=== PATIENT | female | born 1935 | race Caucasian/White ===

== ENCOUNTER → 2017-09-29 | Outpatient (CLI) | payer MEDICARE | END | disposition home or self-care (01) | LOC: RAH 11:09 | PROVIDERS: ATTEND Internal Medicine | DX: Z12.31 Encounter for screening mammogram for malignant neoplasm of breast (principal) | CPT/HCPCS: 77067 ==

== ENCOUNTER → 2019-03-10 | Outpatient (CLI) | payer MEDICARE | END | disposition home or self-care (01) | LOC: RAH 11:11 | PROVIDERS: ATTEND Internal Medicine | DX: Z12.31 Encounter for screening mammogram for malignant neoplasm of breast (principal) | CPT/HCPCS: 77067 ==

== ENCOUNTER → 2019-03-16 | Outpatient (CLI) | payer MEDICARE | END | disposition home or self-care (01) | LOC: RAH 12:21 | PROVIDERS: ATTEND Internal Medicine | DX: R92.1 Mammographic calcification found on diagnostic imaging of breast (principal) | CPT/HCPCS: 77065 ==

== ENCOUNTER 2020-01-28 15:10 | Inpatient (IN) | payer MEDICARE ==
[~2020-01-28] VITALS: Ht 180.3 cm; Wt 63.5 kg
[2020-01-28] MEDS ORDERED: DEXTROSE 50%-WATER 50 ML DISP.SYRIN IV ONE ×2 (15:18→15:56)
[2020-01-28 15:42] LABS: BASOPHILS % (AUTO) 0.5 % (0.0-5.0); EOSINOPHILS % (AUTO) 2.4 % (0.0-8.0); HEMATOCRIT 35.2 % (36-48); LYMPHOCYTES % (AUTO) 5.3 % (21.0-51.0); MEAN CORPUSCULAR HEMOGLOBIN 32.4 pg (27.0-33.0); MEAN CORPUSCULAR HGB CONC 34.9 g/dL (32.0-36.0); MEAN CORPUSCULAR VOLUME 92.6 fL (79-99); NEUTROPHILS % (AUTO) 85.1 % (40.0-77.0); PLATELET COUNT (AUTO) 262 K/uL (130-400); RED CELL DISTRIBUTION WIDTH 15.1 % (11.0-15.5); WHITE BLOOD COUNT (AUTO) 12.7 K/uL (4.8-10.8)
[2020-01-28 15:57] LABS: APPEARANCE,URINE Clear (CLEAR); BILIRUBIN,URINE Large (NEGATIVE); COLOR,URINE Dark Yellow (YELLOW); GLUCOSE, URINE (UA) Negative (NEGATIVE); KETONES,URINE Trace mg/dL (NEGATIVE); LEUKOCYTE ESTERASE ,URINE Trace (NEGATIVE); NITRATE,URINE Negative (NEGATIVE); OCCULT BLOOD,URINE Negative (NEGATIVE); PROTEIN,URINE POS 1+ mg/dL (NEGATIVE)
[2020-01-28 16:03] LABS: BACTERIA,URINE Rare /HPF (None Seen); RBC,URINE 0-1 /HPF (0-1); SQUAMOUS EPITHELIAL CELL,UR Rare /HPF (0-2); WBC,URINE 0-1 /HPF (0-1)
[2020-01-28 16:04] LABS: MUCUS,URINE Rare LPF (None Seen)
[2020-01-28 16:34] LABS: CREATININE 2.7 mg/dL (0.5-1.5); POTASSIUM 4.3 mmol/L (3.5-5.1)
[2020-01-28 16:56] LABS: ALBUMIN 2.4 g/dL (3.5-5.0); BILIRUBIN,TOTAL 1.5 mg/dL (0.2-1.0); TOTAL PROTEIN, SERUM 4.9 g/dL (6.0-8.3)
[2020-01-28 18:41] LABS: INR 1.42 (0.85-1.15); PARTIAL THROMBOPLASTIN TIME 32.7 SEC (26.3-35.5); PROTHROMBIN TIME 15.1 SEC (9.6-11.6)
[2020-01-28] MEDS ORDERED: DEXTROSE 50%-WATER 50 ML DISP.SYRIN IV PRN ×2 (19:00→19:15)
[2020-01-28] MEDS ORDERED: GLUCAGON 1MG KIT 1 MG ML IM PRN ×2 (19:00→19:15)
[2020-01-28] MEDS ORDERED: SODIUM CHLORIDE 0.9% 1000ML 1,000 ML IV SCH (19:01)
[2020-01-28] MEDS ORDERED: SODIUM CHLORIDE 0.9% 1000ML 1,000 ML, SODIUM CHLORIDE 0.9% 1000ML 1,000 ML IV SCH (19:01)
[2020-01-28] MEDS ORDERED: ACETAMINOPHEN 325 MG TAB PO PRN ×2 (19:15)
[2020-01-28] MEDS ORDERED: ZOLPIDEM TARTRATE 5 MG TAB PO PRN (19:15)
[2020-01-28] MEDS ORDERED: NITROGLYCERIN 0.4 MG SL TAB SL PRN (19:15)
[2020-01-28] MEDS ORDERED: DIPHENHYDRAMINE HCL 25 MG CAPSULE PO PRN (19:15)
[2020-01-28] MEDS ORDERED: GUAIFENESIN-DM 200/20 MG 10 ML PO PRN (19:15)
[2020-01-28] MEDS ORDERED: CEFTRIAXONE SODIUM 1 GM IV SCH (19:15)
[2020-01-28] MEDS ORDERED: MAG HYDROX/AL HYDROX/SIMETH 60 ML, LIDOCAINE HCL 2% VISCOUS 60 ML, DIPHENHYDRAMINE HCL ... PO PRN ×3 (19:15)
[2020-01-28] MEDS ORDERED: MAG HYDROX/AL HYDROX/SIMETH ES 30 ML SUSP UDCUP PO PRN (19:15)
[2020-01-28] MEDS ORDERED: DiphenhydrAMINE HCL 50 MG/ML VIAL IV PRN (19:15)
[2020-01-28] MEDS ORDERED: LACTULOSE 20 GM/30 ML UDCUP PO PRN (19:15)
[2020-01-28] MEDS ORDERED: ONDANSETRON HCL 4 MG/2 ML VIAL IV PRN (19:15)
[2020-01-28 19:25] LABS: AMPHET/METH SCREEN,URINE NEGATIVE (NEGATIVE); BARBITURATE SCREEN, URINE NEGATIVE (NEGATIVE); BENZODIAZEPINES SCREEN,URINE NEGATIVE (NEGATIVE); CANNABINOID SCREEN,URINE NEGATIVE (NEGATIVE); COCAINE SCREEN,URINE NEGATIVE (NEGATIVE); OPIATE SCREEN,URINE NEGATIVE (NEGATIVE); PHENCYCLIDINE SCREEN,URINE NEGATIVE (NEGATIVE)
[2020-01-28 19:26] LABS: MAGNESIUM 1.6 mg/dL (1.80-2.40)
[2020-01-28] MEDS ORDERED: CEFTRIAXONE SODIUM 1 GM ONE (19:30)
[2020-01-28] MEDS ORDERED: CALCIUM CHLORIDE 100 MG/ML 10 ML SYG IVP SCH (19:45)
[2020-01-28] MEDS ORDERED: MAGNESIUM 2GM PREMIX 50ML 50 ML IV ONE (19:49)
[2020-01-28 20:25] LABS: HEMOGLOBIN A1C 4.9 % (4.0-6.0)
[2020-01-28 20:59] LABS: MYOGLOBIN 2205 ng/mL (10-92); TROPONIN I < 0.04 ng/mL (0.00-0.06)
[2020-01-28] MEDS: HEPARIN SODIUM 5000UNIT/ML 1ML VIAL SQ SCH (21:00)
[2020-01-28] MEDS: INSULIN LISPRO 100 UNIT/ML 3ML SQ SCH (21:00)
[2020-01-28 21:07] LABS: CREATINE KINASE, TOTAL 909 U/L (21-232)
[2020-01-28 21:16] LABS: MYOGLOBIN 1942 ng/mL (10-92); TROPONIN I < 0.04 ng/mL (0.00-0.06)
[2020-01-28 21:22] LABS: CREATINE KINASE, TOTAL 813 U/L (21-232)
--- NOTE | 2020-01-29 00:45 | NUR ---
ER REPORT FROM SEBASTIÁN RN. PT WAS FOUND AT HOME UNRESPONSIVE ON HER PORCH. WELLNESS CALL WAS MADE BY NEIGHBOR. ON ADMISSIONS BS LEVEL OF 10. PT IS SLIGHTLY CONFUSED.
[2020-01-29 00:50] VITALS: BP 117/59
--- NOTE | 2020-01-29 01:00 | NUR ---
PT ARRIVED TO FLOOR. AAO2. MINIMAL CONFUSION NOTED WHEN ASKING ABOUT EMERGENCY CONTACT. ABLE TO RESPOND TO MOST QUESTIONS. GBW. BLOOD SUGAR 67. GIVEN OJ. PT STATES SHE HAS NO MEDICAL HISTORY. SHE HAS HAD RIGHT FOOT TENDON REPAIR. LIVES AT [facility] IN [place]. SHE HAS A PCP THERE. STATES THERE HAVE BEEN ISSUES WITH HER APPOINTMENTS DUE TO COVID. PT HAS NO FAMILY HERE. HAS NEIGHBOR EMERGENCY CONTACT. ABRASIONS NOTED TO UPPER AND LOWER EXTREMITIES.
[2020-01-29 03:47] VITALS: BP 110/61
[2020-01-29] MEDS: INSULIN LISPRO 100 UNIT/ML 3ML SQ SCH ×4 (05:35→20:41)
[2020-01-29 06:48] LABS: BASOPHILS % (AUTO) 0.2 % (0.0-5.0); EOSINOPHILS % (AUTO) 3.9 % (0.0-8.0); LYMPHOCYTES % (AUTO) 5.6 % (21.0-51.0); MEAN CORPUSCULAR HGB CONC 36.5 g/dL (32.0-36.0); MEAN CORPUSCULAR VOLUME 90.6 fL (79-99); MONOCYTES % (AUTO) 5.8 % (3.0-13.0); NEUTROPHILS % (AUTO) 83.9 % (40.0-77.0); PLATELET COUNT (AUTO) 238 K/uL (130-400); RED BLOOD CELL COUNT(AUTO) 3.42 MIL/uL (4.00-5.50); WHITE BLOOD COUNT (AUTO) 12.3 K/uL (4.8-10.8)
[2020-01-29] MEDS: DEXTROSE 5 % AND 0.9 % NACL 1,000 ML IV SCH (07:57)
[2020-01-29 08:25] LABS: ALANINE AMINOTRANSFERASE 116 U/L (12-78); ALBUMIN 2.4 g/dL (3.5-5.0); ASPARTATE AMINOTRANSFERASE 122 U/L (10-37); BILIRUBIN,TOTAL 1.1 mg/dL (0.2-1.0); CARBON DIOXIDE 27 mmol/L (21-32); CHLORIDE 100 mmol/L (101-111); CREATINE KINASE, TOTAL 388 U/L (21-232); CREATININE 2.7 mg/dL (0.5-1.5); GLOMERULAR FILTR. RATE CALC 18 mL/min (>60); GLUCOSE,RANDOM 150 mg/dL (70-105); PHOSPHORUS 3.7 mg/dL (2.5-4.9); POTASSIUM 4.7 mmol/L (3.5-5.1); SODIUM SERUM 133 mmol/L (136-145); TOTAL PROTEIN, SERUM 4.8 g/dL (6.0-8.3); TROPONIN I < 0.04 ng/mL (0.00-0.06); UREA NITROGEN, BLOOD 56 mg/dL (7-18)
[2020-01-29] MEDS: FAMOTIDINE/PF 20 MG/2 ML VIAL IV SCH (08:52)
[2020-01-29] MEDS: HEPARIN SODIUM 5000UNIT/ML 1ML VIAL SQ SCH ×3 (08:53→20:40)
[2020-01-29 09:09] VITALS: BP 113/54
[2020-01-29 09:38] LABS: MYOGLOBIN 876 ng/mL (10-92)
--- NOTE | 2020-01-29 12:15 | NUR ---
RD NOTIFICATION Pt admitted with metabolic encephalopathy. Pt with Regular diet order in place. Pt tolerating meals as per RN, ate breakfast 75-100%. Pt with FTT, mild to moderate signs muscle/fat loss. BMI low for age. Recommend Ensure TID with meals RD to continue to monitor. Please notify as additional nutrition concerns arise. Thank you.
[2020-01-29 12:16] VITALS: BP 110/59
--- NOTE | 2020-01-29 13:28 | NUR ---
[facility] CM unable to meet w/pt, called friend on facesheet, left message on [employer] for Jaimee Cuevas , pending friend to call back. Obtained info from previous med records. Pt was independent at home, no dme known. Called Dr Bond's office to see if there is any family member contact available, as per nurse none at this time, only contact they have is patient's number. CM will reassess once pt more coherent and able to answer questions. DC plan for home home w/HH vs SNF. CM to cont to follow up. Addendum: 01/29/20 at 1331 by BLOSSOM MARQUEZ LVN CM Amended: Links added.
[2020-01-29 15:39] LABS: APPEARANCE,URINE Clear (CLEAR); BILIRUBIN,URINE Moderate (NEGATIVE); COLOR,URINE Dark Yellow (YELLOW); GLUCOSE, URINE (UA) Negative (NEGATIVE); KETONES,URINE Trace mg/dL (NEGATIVE); LEUKOCYTE ESTERASE ,URINE Small (NEGATIVE); NITRATE,URINE Negative (NEGATIVE); OCCULT BLOOD,URINE Negative (NEGATIVE); PROTEIN,URINE Trace mg/dL (NEGATIVE)
[2020-01-29 15:50] LABS: BACTERIA,URINE Few /HPF (None Seen); RBC,URINE 0-1 /HPF (0-1); SQUAMOUS EPITHELIAL CELL,UR Few /HPF (0-2); TRANSITIONAL EPI CELLS,URINE Few /HPF (None Seen)
[2020-01-29 17:05] VITALS: BP 120/65
[2020-01-29 20:00] VITALS: BP 105/57
[2020-01-30] VITALS: BP 120/68
[2020-01-30 04:00] VITALS: BP 119/69
[2020-01-30 04:03] LABS: BASOPHILS % (AUTO) 0.2 % (0.0-5.0); EOSINOPHILS % (AUTO) 4.2 % (0.0-8.0); HEMATOCRIT 31.2 % (36-48); LYMPHOCYTES % (AUTO) 4.4 % (21.0-51.0); MEAN CORPUSCULAR HEMOGLOBIN 32.8 pg (27.0-33.0); MEAN CORPUSCULAR HGB CONC 35.9 g/dL (32.0-36.0); MEAN CORPUSCULAR VOLUME 91.5 fL (79-99); MONOCYTES % (AUTO) 7.3 % (3.0-13.0); NEUTROPHILS % (AUTO) 82.9 % (40.0-77.0); PLATELET COUNT (AUTO) 228 K/uL (130-400); RED BLOOD CELL COUNT(AUTO) 3.41 MIL/uL (4.00-5.50); RED CELL DISTRIBUTION WIDTH 15.8 % (11.0-15.5); WHITE BLOOD COUNT (AUTO) 12.2 K/uL (4.8-10.8)
[2020-01-30 04:26] LABS: ALBUMIN 2.1 g/dL (3.5-5.0); BILIRUBIN,TOTAL 0.8 mg/dL (0.2-1.0); CREATININE 2.3 mg/dL (0.5-1.5); MAGNESIUM 1.8 mg/dL (1.80-2.40); PHOSPHORUS 2.5 mg/dL (2.5-4.9); POTASSIUM 3.7 mmol/L (3.5-5.1); THYROID STIMULATING HORMONE 2.75 uIU/mL (0.36-3.74); TOTAL PROTEIN, SERUM 4.7 g/dL (6.0-8.3); URIC ACID 12.8 mg/dL (2.6-7.2)
[2020-01-30] MEDS: DEXTROSE 5 % AND 0.9 % NACL 1,000 ML IV SCH ×3 (05:01→21:23)
[2020-01-30] MEDS: INSULIN LISPRO 100 UNIT/ML 3ML SQ SCH ×4 (06:15→21:00)
[2020-01-30 08:00] VITALS: BP 120/66
[2020-01-30] MEDS: FOLIC ACID/VITAMIN B COMP W-C 1 CAP TAB PO SCH (09:34)
[2020-01-30] MEDS: THIAMINE HCL 100 MG/ML 2ML VIAL IVP SCH (09:35)
[2020-01-30] MEDS: FAMOTIDINE/PF 20 MG/2 ML VIAL IV SCH (09:35)
[2020-01-30] MEDS: HEPARIN SODIUM 5000UNIT/ML 1ML VIAL SQ SCH ×3 (09:35→20:54)
[2020-01-30 12:00] VITALS: BP 106/54
--- NOTE | 2020-01-30 15:18 | NUR ---
DCP: cont CM met w/pt, unable to answer questions appropriately still, called friend on facesheet. Spoke to Jaimee Cuevas . As per friend she assists w/pt's needs, but currently in [place]. Pt lives alone, she lives close by. Pt uses cane at home for ambulation as needed. Denies any other equipments/services. Uses [facility] for meds. CM to cont to follow up w/pt once more stable.
[2020-01-30 16:30] VITALS: BP 127/51
[2020-01-30 21:50] VITALS: BP 112/64
--- NOTE | 2020-01-30 22:07 | NUR ---
TRANSFER Received from 4th floor accompanied per Em [place].Pt aao x 2,she had pulled out her iv.Iv restarted to left upper arm x 1 attempt,successful.Iv wrapped with Kerlix.Pt came in with multiple abrasions and skin tears to both arms.has a deept tissue injury to her left hip.St 2 breakdown to her left buttocks.Pictures taken per Em [place].Pt wearing diaper.Reoriented to time and place.Fall risks precautions initiated.
--- NOTE | 2020-01-30 22:30 | NUR ---
wound pictures taken, printed and placed in paper chart.
[2020-01-31] VITALS (7 sets, daily range): BP systolic 114–162; BP diastolic 59–75
[2020-01-31 04:40] LABS: BASOPHILS % (AUTO) 0.3 % (0.0-5.0); EOSINOPHILS % (AUTO) 4.2 % (0.0-8.0); HEMATOCRIT 32.2 % (36-48); LYMPHOCYTES % (AUTO) 4.5 % (21.0-51.0); MEAN CORPUSCULAR HEMOGLOBIN 32.8 pg (27.0-33.0); MEAN CORPUSCULAR HGB CONC 35.7 g/dL (32.0-36.0); MEAN CORPUSCULAR VOLUME 91.7 fL (79-99); MONOCYTES % (AUTO) 8.5 % (3.0-13.0); NEUTROPHILS % (AUTO) 81.4 % (40.0-77.0); PLATELET COUNT (AUTO) 189 K/uL (130-400); RED BLOOD CELL COUNT(AUTO) 3.51 MIL/uL (4.00-5.50); WHITE BLOOD COUNT (AUTO) 11.6 K/uL (4.8-10.8)
[2020-01-31 05:04] LABS: BILIRUBIN,TOTAL 0.7 mg/dL (0.2-1.0); CREATININE 1.8 mg/dL (0.5-1.5); MAGNESIUM 1.6 mg/dL (1.80-2.40); POTASSIUM 3.6 mmol/L (3.5-5.1); TOTAL PROTEIN, SERUM 4.7 g/dL (6.0-8.3)
--- NOTE | 2020-01-31 05:05 | NUR ---
CALM Pt rested and slept thru the night.Calm and cooperative.
[2020-01-31] MEDS: DEXTROSE 5 % AND 0.9 % NACL 1,000 ML IV SCH ×2 (05:34→22:07)
[2020-01-31] MEDS: MAGNESIUM 2GM PREMIX 50ML 50 ML IV SCH (05:41)
[2020-01-31] MEDS: INSULIN LISPRO 100 UNIT/ML 3ML SQ SCH ×4 (05:52→20:42)
[2020-01-31] MEDS: FAMOTIDINE/PF 20 MG/2 ML VIAL IV SCH (09:13)
[2020-01-31] MEDS: FOLIC ACID/VITAMIN B COMP W-C 1 CAP TAB PO SCH (09:14)
[2020-01-31] MEDS: THIAMINE HCL 100 MG/ML 2ML VIAL IVP SCH (09:14)
[2020-01-31] MEDS: HEPARIN SODIUM 5000UNIT/ML 1ML VIAL SQ SCH ×3 (09:20→22:03)
[2020-01-31 10:14] LABS: HEPATITIS A ANTIBODY IGM Negative (Negative); HEPATITIS B CORE IGM Negative (Negative); HEPATITIS Bs ANTIGEN SCREEN P Negative (Negative)
[2020-01-31] MEDS ORDERED: HONEY 1 APPL/ML TUBE TP SCH (21:00)
[2020-02-01 03:27] VITALS: BP 137/80
[2020-02-01 04:50] LABS: HEMATOCRIT 32.8 % (36-48); MEAN CORPUSCULAR HEMOGLOBIN 32.6 pg (27.0-33.0); MEAN CORPUSCULAR HGB CONC 35.4 g/dL (32.0-36.0); MEAN CORPUSCULAR VOLUME 92.1 fL (79-99); PLATELET COUNT (AUTO) 185 K/uL (130-400); RED BLOOD CELL COUNT(AUTO) 3.56 MIL/uL (4.00-5.50); RED CELL DISTRIBUTION WIDTH 16.3 % (11.0-15.5)
[2020-02-01 04:57] LABS: CREATININE 1.6 mg/dL (0.5-1.5); POTASSIUM 3.9 mmol/L (3.5-5.1)
[2020-02-01] MEDS: INSULIN LISPRO 100 UNIT/ML 3ML SQ SCH ×4 (05:31→21:00)
[2020-02-01 05:45] LABS: BAND NEUTROPHILS % (MANUAL) 12 % (0-2); BASOPHILS % (MANUAL) 1 % (0-2); EOSINOPHILS % (MANUAL) 2 % (1-6); LYMPHOCYTES % (MANUAL) 8 % (22-44); MONOCYTES % (MANUAL) 9 % (2-9); SEGMENTED NEUTROPHILS % 68 % (40-70)
[2020-02-01 05:46] LABS: MAN.DIFF COMMENT-IMPRESSION MANUAL DIFFERENTIAL; PLATELET MORPHOLOGY COMMENT ADEQUATE
[2020-02-01 08:00] VITALS: BP 143/63
[2020-02-01] MEDS ORDERED: HONEY 1 APPL/ML TUBE TP SCH (09:00)
[2020-02-01] MEDS: FAMOTIDINE/PF 20 MG/2 ML VIAL IV SCH (09:05)
[2020-02-01] MEDS: THIAMINE HCL 100 MG/ML 2ML VIAL IVP SCH (09:08)
[2020-02-01] MEDS: HEPARIN SODIUM 5000UNIT/ML 1ML VIAL SQ SCH ×3 (09:13→21:25)
[2020-02-01] MEDS: FOLIC ACID/VITAMIN B COMP W-C 1 CAP TAB PO SCH (09:15)
--- NOTE | 2020-02-01 11:52 | NUR ---
EMILIA NIETO SPOKE TO PT AT BEDSIDE, REGARDING ONCOLOGY CONSULT PT REFUSE CONSULT.
[2020-02-01 11:54] VITALS: BP 140/79
--- NOTE | 2020-02-01 13:39 | NUR ---
CM Note: declined placement CM met with pt discussed MD recommendations for short term rehab, pt declined at this time. Pt verbalized her friend Jaimee goes to her house daily to check on her and assist her w/transportation and needs. Informed pt will have JOSE ANTONIO Gonzalez visit patient at home to see if maybe she can assist w/possible provider at home, pt agreed. Dr Montez made aware. DC plan to home once stable. Primary nurse Tana BOLANOS aware. CM to cont to follow up.
--- NOTE | 2020-02-01 13:44 | NUR ---
CM Note: spoke to Lisa w/DAD CM informed Lisa w/DAD regarding possible assistance for pt at home, pt lives alone. Per Lisa will call pt and friend. CM to cont to follow up.
[2020-02-01] MEDS: DEXTROSE 5 % AND 0.9 % NACL 1,000 ML IV SCH (14:58)
[2020-02-01 16:00] VITALS: BP 133/61
[2020-02-01 20:00] VITALS: BP 117/55
[2020-02-02] VITALS: BP 144/98
[2020-02-02 03:41] VITALS: BP 148/81
[2020-02-02 05:04] LABS: BASOPHILS % (AUTO) 0.3 % (0.0-5.0); EOSINOPHILS % (AUTO) 3.3 % (0.0-8.0); HEMATOCRIT 33.9 % (36-48); LYMPHOCYTES % (AUTO) 3.9 % (21.0-51.0); MEAN CORPUSCULAR HEMOGLOBIN 32.1 pg (27.0-33.0); MEAN CORPUSCULAR HGB CONC 34.5 g/dL (32.0-36.0); MEAN CORPUSCULAR VOLUME 93.1 fL (79-99); NEUTROPHILS % (AUTO) 77.8 % (40.0-77.0); PLATELET COUNT (AUTO) 177 K/uL (130-400); RED BLOOD CELL COUNT(AUTO) 3.64 MIL/uL (4.00-5.50); RED CELL DISTRIBUTION WIDTH 16.8 % (11.0-15.5)
[2020-02-02 05:34] LABS: ALBUMIN 2.1 g/dL (3.5-5.0); BILIRUBIN,TOTAL 0.8 mg/dL (0.2-1.0); CREATININE 1.3 mg/dL (0.5-1.5); POTASSIUM 4.2 mmol/L (3.5-5.1); TOTAL PROTEIN, SERUM 4.8 g/dL (6.0-8.3)
[2020-02-02] MEDS: INSULIN LISPRO 100 UNIT/ML 3ML SQ SCH ×4 (05:44→21:00)
[2020-02-02 08:15] VITALS: BP 130/70
[2020-02-02] MEDS: FAMOTIDINE/PF 20 MG/2 ML VIAL IV SCH (10:09)
[2020-02-02] MEDS: FOLIC ACID/VITAMIN B COMP W-C 1 CAP TAB PO SCH (10:10)
[2020-02-02] MEDS: HEPARIN SODIUM 5000UNIT/ML 1ML VIAL SQ SCH ×3 (10:10→21:56)
[2020-02-02] MEDS: THIAMINE HCL 100 MG/ML 2ML VIAL IVP SCH (10:10)
[2020-02-02 11:33] VITALS: BP 109/62
--- NOTE | 2020-02-02 13:33 | NUR ---
CM note: [facility] pending approval CM met with pt, as per MD now agreeable for SNF, discussed MD recommendations. Pt now agreeable for short term rehab, JOHN signed for [facility]. Pt request for friend Jaimee to be updated. CM spoke to Jaimee , given POC, friend agreeable, telephone consent obtained JOHN for GP, witnessed by Raiza ROJAS. Faxed order, clinicals, PT, [facility], Covid transfer form to [facility], confirmation received. Spoke to Zulema barry dcp once approved, made aware pending covid rapid test ordered today, will send result once available. Pt pending approval. EMS filled out, pending to be faxed w/current date, primary nurse to call [facility] once pt ready to DC. Primary nurse aware. CM to cont to follow up.
[2020-02-02 16:14] VITALS: BP 129/78
[2020-02-02 20:00] VITALS: BP 141/64
[2020-02-03] VITALS: BP 145/75
[2020-02-03 04:00] VITALS: BP 133/80
[2020-02-03 05:05] LABS: HEMATOCRIT 34.8 % (36-48); MEAN CORPUSCULAR HEMOGLOBIN 32.3 pg (27.0-33.0); MEAN CORPUSCULAR HGB CONC 34.2 g/dL (32.0-36.0); MEAN CORPUSCULAR VOLUME 94.6 fL (79-99); PLATELET COUNT (AUTO) 196 K/uL (130-400); RED BLOOD CELL COUNT(AUTO) 3.68 MIL/uL (4.00-5.50); RED CELL DISTRIBUTION WIDTH 17.2 % (11.0-15.5); WHITE BLOOD COUNT (AUTO) 13.5 K/uL (4.8-10.8)
[2020-02-03 05:16] LABS: CREATININE 1.4 mg/dL (0.5-1.5); POTASSIUM 4.5 mmol/L (3.5-5.1)
[2020-02-03 05:53] LABS: BAND NEUTROPHILS % (MANUAL) 11 % (0-2); BASOPHILS % (MANUAL) 1 % (0-2); EOSINOPHILS % (MANUAL) 1 % (1-6); LYMPHOCYTES % (MANUAL) 3 % (22-44); MAN.DIFF COMMENT-IMPRESSION MANUAL DIFFERENTIAL; MONOCYTES % (MANUAL) 9 % (2-9); SEGMENTED NEUTROPHILS % 75 % (40-70)
[2020-02-03 05:54] LABS: PLATELET MORPHOLOGY COMMENT ADEQUATE
[2020-02-03] MEDS: INSULIN LISPRO 100 UNIT/ML 3ML SQ SCH ×4 (06:31→20:56)
[2020-02-03 08:00] VITALS: BP 139/81
[2020-02-03] MEDS: FAMOTIDINE/PF 20 MG/2 ML VIAL IV SCH (10:26)
[2020-02-03] MEDS: THIAMINE HCL 100 MG/ML 2ML VIAL IVP SCH (10:26)
[2020-02-03] MEDS: FOLIC ACID/VITAMIN B COMP W-C 1 CAP TAB PO SCH (10:26)
[2020-02-03] MEDS: HEPARIN SODIUM 5000UNIT/ML 1ML VIAL SQ SCH ×3 (10:28→20:56)
[2020-02-03 12:00] VITALS: BP 92/50
[2020-02-03 16:00] VITALS: BP 130/73
--- NOTE | 2020-02-03 18:10 | NUR ---
DRESSING'S CHANGED TO BILATERIAL ARMS WHERE PT HAS SKIN TEARS FROM FALL THAT SHE HAD AT HOME PRIOR TO ADMISSION; PT IS ALSO NOTED TO HAVE HEALING SCABS TO BOTH KNEES AND LOWER LEGS; I CLEANSED ARMS WITH BETADINE THEN APPLIED MEDIHONEY WITH VASELINE GAUZE COVERING AND KERLIX WRAP HOLDING DRESSINGS IN PLACE; BRUISED SKIN IN NOTED AROUND THE TEARS, AND PINK TISSUE WITHIN THE TEARS, NO DRAINAGE; PT IS ALSO NOTED TO HAVE A LARGE SCAB TO HER RIGHT ELBOW; PT YOU. DRESSING CHANGES WELL WITH NO C/O PAIN.
[2020-02-03 20:00] VITALS: BP 131/69
[2020-02-04] VITALS (8 sets, daily range): BP systolic 88–141; BP diastolic 52–76
[2020-02-04] MEDS: INSULIN LISPRO 100 UNIT/ML 3ML SQ SCH ×4 (05:35→21:00)
[2020-02-04 05:39] LABS: BASOPHILS % (AUTO) 0.4 % (0.0-5.0); EOSINOPHILS % (AUTO) 2.5 % (0.0-8.0); HEMATOCRIT 33.9 % (36-48); LYMPHOCYTES % (AUTO) 3.5 % (21.0-51.0); MEAN CORPUSCULAR HEMOGLOBIN 32.5 pg (27.0-33.0); MEAN CORPUSCULAR HGB CONC 34.8 g/dL (32.0-36.0); MEAN CORPUSCULAR VOLUME 93.4 fL (79-99); MONOCYTES % (AUTO) 9.9 % (3.0-13.0); NEUTROPHILS % (AUTO) 82.3 % (40.0-77.0); PLATELET COUNT (AUTO) 210 K/uL (130-400); RED BLOOD CELL COUNT(AUTO) 3.63 MIL/uL (4.00-5.50); RED CELL DISTRIBUTION WIDTH 17.2 % (11.0-15.5); WHITE BLOOD COUNT (AUTO) 15.6 K/uL (4.8-10.8)
[2020-02-04 06:04] LABS: CREATININE 1.4 mg/dL (0.5-1.5); POTASSIUM 4.7 mmol/L (3.5-5.1)
[2020-02-04] MEDS: FAMOTIDINE/PF 20 MG/2 ML VIAL IV SCH (09:28)
[2020-02-04] MEDS: THIAMINE HCL 100 MG/ML 2ML VIAL IVP SCH (09:29)
[2020-02-04] MEDS: FOLIC ACID/VITAMIN B COMP W-C 1 CAP TAB PO SCH (09:29)
[2020-02-04] MEDS: HEPARIN SODIUM 5000UNIT/ML 1ML VIAL SQ SCH ×3 (09:36→20:56)
--- NOTE | 2020-02-04 12:00 | NUR ---
[facility]: Spoke w [facility]. She mentions that pt has been accepted for admission to their facility. COVID form and rapid test results faxed.. Room 1107B assigned. Primary nurse Ford informed.
--- NOTE | 2020-02-04 13:20 | NUR ---
Notified Dr. Montez that pt has been accepted to [facility]. He stated no discharge orders because pt bp has been borderline low today. Last BP was 88/52, but pt asymptomatic, resting in bed after having completed physical therapy session. Notified ERIC Arambula, who stated that negative COVID swab will be valid until tomorrow.
[2020-02-04] MEDS: SODIUM CHLORIDE 0.9% 1000ML 1,000 ML IV SCH (15:22)
[2020-02-05 04:00] VITALS: BP 140/73
[2020-02-05] MEDS: INSULIN LISPRO 100 UNIT/ML 3ML SQ SCH ×4 (05:59→20:19)
[2020-02-05 07:05] LABS: CREATININE 1.3 mg/dL (0.5-1.5); MAGNESIUM 1.5 mg/dL (1.80-2.40); POTASSIUM 4.8 mmol/L (3.5-5.1)
[2020-02-05 07:29] VITALS: BP 139/91
[2020-02-05] MEDS ORDERED: MAGNESIUM 2GM PREMIX 50ML 50 ML IV SCH (08:30)
[2020-02-05] MEDS: FOLIC ACID/VITAMIN B COMP W-C 1 CAP TAB PO SCH (10:22)
[2020-02-05] MEDS: THIAMINE HCL 100 MG/ML 2ML VIAL IVP SCH (10:22)
[2020-02-05] MEDS: FAMOTIDINE/PF 20 MG/2 ML VIAL IV SCH (10:22)
[2020-02-05] MEDS: SODIUM CHLORIDE 0.9% 1000ML 1,000 ML IV SCH (10:30)
[2020-02-05] MEDS: HEPARIN SODIUM 5000UNIT/ML 1ML VIAL SQ SCH ×3 (10:31→20:28)
[2020-02-05 10:59] VITALS: BP 85/53
[2020-02-05] MEDS: MAGNESIUM 2GM PREMIX 50ML 50 ML IV SCH (11:49)
[2020-02-05 16:08] VITALS: BP 127/74
--- NOTE | 2020-02-05 17:13 | NUR ---
DISPOSITION WILL BE TO SNF- WHEN COVID IS AVAILALBE Addendum: 02/05/20 at 1718 by DENISSE SAINZ RN CM Amended: Links added.
[2020-02-05 20:00] VITALS: BP 124/79
[2020-02-05 23:39] VITALS: BP 146/76
[2020-02-06 03:52] VITALS: BP 141/80
[2020-02-06 04:58] LABS: BASOPHILS % (AUTO) 0.4 % (0.0-5.0); EOSINOPHILS % (AUTO) 1.6 % (0.0-8.0); HEMATOCRIT 36.2 % (36-48); LYMPHOCYTES % (AUTO) 2.8 % (21.0-51.0); MEAN CORPUSCULAR HEMOGLOBIN 32.5 pg (27.0-33.0); MEAN CORPUSCULAR HGB CONC 34.3 g/dL (32.0-36.0); MEAN CORPUSCULAR VOLUME 94.8 fL (79-99); MONOCYTES % (AUTO) 6.1 % (3.0-13.0); NEUTROPHILS % (AUTO) 88.1 % (40.0-77.0); PLATELET COUNT (AUTO) 249 K/uL (130-400); RED BLOOD CELL COUNT(AUTO) 3.82 MIL/uL (4.00-5.50); RED CELL DISTRIBUTION WIDTH 17.7 % (11.0-15.5)
[2020-02-06 05:20] LABS: CREATININE 1.5 mg/dL (0.5-1.5); POTASSIUM 5.3 mmol/L (3.5-5.1)
[2020-02-06] MEDS: INSULIN LISPRO 100 UNIT/ML 3ML SQ SCH ×4 (06:38→21:00)
[2020-02-06 08:00] VITALS: BP 142/76
[2020-02-06] MEDS: FOLIC ACID/VITAMIN B COMP W-C 1 CAP TAB PO SCH (08:40)
[2020-02-06] MEDS: FAMOTIDINE/PF 20 MG/2 ML VIAL IV SCH (08:40)
[2020-02-06] MEDS: THIAMINE HCL 100 MG/ML 2ML VIAL IVP SCH (08:40)
[2020-02-06] MEDS: HEPARIN SODIUM 5000UNIT/ML 1ML VIAL SQ SCH ×3 (08:57→21:28)
[2020-02-06 11:05] LABS: ALBUMIN 2.1 g/dL (3.5-5.0); BILIRUBIN,TOTAL 0.9 mg/dL (0.2-1.0)
[2020-02-06 12:00] VITALS: BP 119/52
--- NOTE | 2020-02-06 15:59 | NUR ---
RD FOLLOW UP Pt with [facility], Low potassium diet order in place. No report of GI distress. Fair to poor Po intake. Noted Coccyx ulcer, multiple skin tears/abrasions with medihoney in place. Nephrovite and MVI in place. Significant weight loss x 1 week. Recommend 60mL ProMod BID Recommend Nepro QD RD to continue to monitor. Please notify RD as additional nutrition concerns arise. Thank you. Addendum: 02/06/20 at [address] RD Amended: Links added.
[2020-02-06 16:00] VITALS: BP 114/73
[2020-02-06 17:51] LABS: INR 1.12 (0.85-1.15); PARTIAL THROMBOPLASTIN TIME 32.1 SEC (26.3-35.5)
[2020-02-06 20:31] VITALS: BP 140/70
[2020-02-06 23:51] VITALS: BP 138/77
[2020-02-07 03:54] VITALS: BP 144/82
[2020-02-07 04:23] LABS: BASOPHILS % (AUTO) 0.2 % (0.0-5.0); EOSINOPHILS % (AUTO) 1.6 % (0.0-8.0); HEMATOCRIT 33.6 % (36-48); MEAN CORPUSCULAR HGB CONC 35.1 g/dL (32.0-36.0); MEAN CORPUSCULAR VOLUME 93.9 fL (79-99); MONOCYTES % (AUTO) 5.7 % (3.0-13.0); NEUTROPHILS % (AUTO) 89.8 % (40.0-77.0); PLATELET COUNT (AUTO) 254 K/uL (130-400); RED BLOOD CELL COUNT(AUTO) 3.58 MIL/uL (4.00-5.50); RED CELL DISTRIBUTION WIDTH 17.2 % (11.0-15.5)
[2020-02-07 04:56] LABS: CREATININE 1.4 mg/dL (0.5-1.5); POTASSIUM 4.9 mmol/L (3.5-5.1)
--- NOTE | 2020-02-07 06:30 | NUR ---
Wound care done to left arm and right arm due to multiple superficial skin tear. Wound looks like resolving as compared to previous days. Some of the wound are dry and has been resolved. Photo of the wound taken and attached to chart. No unusualities seen.
[2020-02-07] MEDS: INSULIN LISPRO 100 UNIT/ML 3ML SQ SCH ×2 (06:40→11:30)
[2020-02-07 07:30] VITALS: BP 136/69
--- NOTE | 2020-02-07 08:00 | NUR ---
AM SHIFT ASSESSMENT. AWAKE, DRESSINGS TO ARMS WELL SECURED, CLEAN AND DRY. CAN TELL ME HER NAME AND DATE OF BUT DOES NOT KNOW WHERE SHE IS OR DATE.
[2020-02-07] MEDS: THIAMINE HCL 100 MG/ML 2ML VIAL IVP SCH (08:49)
[2020-02-07] MEDS: FAMOTIDINE/PF 20 MG/2 ML VIAL IV SCH (08:49)
[2020-02-07] MEDS: FOLIC ACID/VITAMIN B COMP W-C 1 CAP TAB PO SCH (08:50)
[2020-02-07] MEDS: HEPARIN SODIUM 5000UNIT/ML 1ML VIAL SQ SCH ×2 (08:52→14:21)
[2020-02-07 11:00] VITALS: BP 128/69
[2020-02-07 11:22] LABS: ALBUMIN 1.9 g/dL (3.5-5.0); BILIRUBIN,TOTAL 0.9 mg/dL (0.2-1.0); CREATININE 1.6 mg/dL (0.5-1.5); POTASSIUM 5.2 mmol/L (3.5-5.1); TOTAL PROTEIN, SERUM 4.8 g/dL (6.0-8.3)
[2020-02-07 16:00] VITALS: BP 137/77
--- NOTE | 2020-02-07 16:45 | NUR ---
Notified pt's contact Jaimee Cuevas of impending discharge to [facility] this afternoon.
--- NOTE | 2020-02-07 20:06 | NUR ---
REPORT CALLED, GIVEN TO NURSE WILSON. EMS NOTIFIED OF TRANSFER
--- NOTE | 2020-02-07 22:06 | NUR ---
[facility] here to transport pt to [facility],pt aao x 2,not in distress.Her friend Jaimee was notified.
== END 2020-02-07 22:10 | DRG 640 ==
LOC: EDH 15:10 → EDHIP 17:10 → 3BH 01-29 00:23 → 4AH 01-30 14:14 → 3CH 01-30 21:16
PROVIDERS: ADMIT Internal Medicine; ATTEND Internal Medicine
DX: E16.2 Hypoglycemia, unspecified (principal); G93.41 Metabolic encephalopathy; E43 Unspecified severe protein-calorie malnutrition; N17.9 Acute kidney failure, unspecified; C78.89 Secondary malignant neoplasm of other digestive organs; M62.82 Rhabdomyolysis; R18.8 Other ascites; Z68.1 Body mass index [BMI] 19.9 or less, adult; E87.1 Hypo-osmolality and hyponatremia; E87.2 Acidosis; R55 Syncope and collapse; E86.0 Dehydration; K86.9 Disease of pancreas, unspecified; E83.51 Hypocalcemia; E83.42 Hypomagnesemia; I49.3 Ventricular premature depolarization; F17.210 Nicotine dependence, cigarettes, uncomplicated; D72.829 Elevated white blood cell count, unspecified; D64.9 Anemia, unspecified; F10.10 Alcohol abuse, uncomplicated; R74.8 Abnormal levels of other serum enzymes; R53.81 Other malaise; E86.1 Hypovolemia; I73.9 Peripheral vascular disease, unspecified; N18.9 Chronic kidney disease, unspecified; I12.9 Hypertensive chronic kidney disease with stage 1 through stage 4 chronic kidney disease, or unspecified chronic kidney disease; R62.7 Adult failure to thrive; W19.XXXA Unspecified fall, initial encounter; Y93.89 Activity, other specified; Y92.098 Other place in other non-institutional residence as the place of occurrence of the external cause; Y99.8 Other external cause status; Z74.01 Bed confinement status; Z91.19 Patient's noncompliance with other medical treatment and regimen; Z03.818 Encounter for observation for suspected exposure to other biological agents ruled out
CPT/HCPCS: 36415; 70450; 70551; 71045; 74176; 76770; 80048; 80053; 80074; 80305; 81001; 82105; 82140; 82330; 82550; 82948; 83036; 83605; 83735; 83874; 84100; 84145; 84443; 84484; 84550; 85025; 85610; 85730; 86316; 87040; 87088; 87426; 93005; 93306; 93880; 94667; 97039; G0378; J0696; J1644; J3411; J3475; J3490; J7030; J7042; J7070; U0003